=== PATIENT | female | born 1985 | race Caucasian/White ===

== ENCOUNTER 2018-04-11 13:03 | Emergency (ER) | payer MEDICAID, SELFPAY ==
[2018-04-11 13:10] VITALS: BP 123/92; PULSE 105; RESP 17; TEMP 36; O2SAT 95
[2018-04-11 16:35] LABS: Abs Immature Grans 0.03 k/cumm (0.0-0.09); Absolute Basophil Count 0.03 k/cumm (0.0-0.2); Absolute Eosinophil Count 0.01 k/cumm (0.0-0.7); Absolute Lymphocyte Count 1.64 k/cumm (1.2-3.4); Absolute Monocyte Count 0.45 k/cumm (0.11-0.7); Absolute Neutrophil Count 8.29 k/cumm (1.2-6.7); Basophils % 0.3; Eosinophils % 0.1; HCT 53.7 % (36.0-46.0); HGB 17.2 g/dL (12.0-15.5); Immature Grans % 0.3; Lymphocytes % 15.7; Mean Corpuscular Hemoglobin 30.3 pg (27.0-33.0); Mean Corpuscular Volume 94.5 fL (80-95); Mean Platelet Volume 9.9 fL (8.0-11.0); Monocytes % 4.3; Neutrophils % 79.3; Platelet Count 244 x1000/uL (130-400); RBC 5.68 m/cumm (4.00-5.20); RBC Distribution Width 13.3 % (11.7-14.6); White Blood Cell Count 10.45 k/cumm (4.4-10.8)
[2018-04-11] MEDS: Ondansetron 4 MG/2 ML VIAL IVP (16:37)
[2018-04-11] MEDS: Ketorolac 15 MG/ML VIAL IVP (16:38)
[2018-04-11] MEDS: Normal Saline 1,000 ML 1000 ML IV (16:38)
[2018-04-11 16:49] LABS: ALT 24 U/L (12-78); AST 15 U/L (15-37); Albumin 3.9 g/dL (3.4-5.0); Alkaline Phosphatase 250 U/L (46-116); Anion Gap 10.3 mmol/L (3-11); BUN 7 mg/dL (7-18); Bilirubin, Total 0.4 mg/dL (0.2-1.0); CO2 29.7 mmol/L (21.0-32.0); CREATININE 0.63 mg/dL (0.55-1.02); Calcium 9.9 mg/dL (8.5-10.1); Chloride 99 mmol/L (98-107); Glucose 109 mg/dL (70-100); Lipase 119 U/L (73-393); Sodium 139 mmol/L (136-145)
--- NOTE | 2018-04-11 17:52 | W.ED.GENAD ---
Discharge Plan Disposition Patient Disposition: HOME Condition: Improving Discharge Details Chief Complaint: Nausea/Vomit/Diar Clinical Impression: Nausea & vomiting Primary Care Provider: Alisa Castro ED Provider: Jadiel Cates Home Meds and New Rx's Prescriptions: New ondansetron 4 mg tablet,disintegrating 4 mg PO TID PRN (Reason: nausea and vomiting) Qty: 6 RF: 0 Continue omeprazole 40 MG capsule,delayed release(DR/EC) 40 mg PO DAILY RF: 0 buprenorphine-naloxone [Suboxone] 1 EACH film 2 ea Sublingual DAILY RF: 0 furosemide 40 MG tablet 40 mg PO DAILY@1100 Qty: 30 RF: 0 potassium chloride 10 MEQ capsule, extended release 20 meq PO BID Qty: 30 RF: 0 citalopram 10 MG tablet 10 mg PO HS Qty: 30 RF: 0 cyanocobalamin (vitamin B-12) [Vitamin B-12] 500 MCG tablet 1,000 mcg PO DAILY Qty: 30 RF: 0 nicotine 21 MG/24 HR patch 24 hour 21 mg Transdermal QPM Qty: 15 RF: 0 docusate sodium [Colace] 100 MG capsule 100 mg PO BID Qty: 30 RF: 0 folic acid 1 MG tablet 1 mg PO DAILY@1100 Qty: 30 RF: 0 pyridoxine (vitamin B6) 100 MG tablet 100 mg PO DAILY Qty: 30 RF: 0 ergocalciferol (vitamin D2) [Vitamin D2] 50,000 UNITS capsule 50,000 units PO Q7D Qty: 30 RF: 0 spironolactone 50 MG tablet 100 mg PO DAILY@1100 Qty: 30 RF: 0 multivit, iron, min no.8, FA [Therapeutic-M] 1 TAB tablet 1 tab PO DAILY Qty: 30 RF: 0 vitamin E (dl, acetate) 400 UNITS capsule 400 units PO DAILY@1100 Qty: 30 RF: 0 lactulose 20 GM/30 ML solution 20 gm PO BID Qty: 1 RF: 1 ondansetron HCl 4 MG tablet 4 mg PO Q6H PRN PRN (Reason: Nausea) Qty: 10 RF: 0 Discharge Instructions Instructions: Acute Nausea and Vomiting (ED) Additional Instructions: Feel free to return to the emergency department for any new or worsening symptoms otherwise follow-up with your primary care provider in 1 week for reassessment and recheck of your labs due to some of the abnormalities noted in your blood count. Otherwise during illness please stay well-hydrated and get plenty of rest. Referrals: Alisa Castro [Primary Care Provider] - 1 week Discharge Data Discharge Date/Time-TO BE ENTERED AT DEPARTURE: 04/11/18 18:25 Medical Decision Making <del>P</del>atient presenting to the emergency department chief complaint of nausea vomiting with some abdominal pain. Patient reports that this began last night and developed the night and she has had persistent vomiting since. Patient states that she has been not able to keep down any food or fluids due to severity of symptoms is coming to the emergency department to be evaluated. Patient does state that her daughter also has had some similar symptoms but not be severe vomiting. She does report some fever and chills as well. Physical exam is unremarkable and cardiac respiratory and abdominal exam showed no acute findings. Patient specifically does not have any CVA tenderness and has a nonsurgical abdomen. Severe vomiting I am concerned for possible dehydration electrolyte abnormalities otherwise I do not feel that any imaging of the abdomen needs to be done at this time I suspect more of a gastroenteritis, viral illness, or foodborne illness. Pending results patient given IV fluids, Zofran. After review of labs which are nondiagnostic patient was reassessed. Patient states improvement of symptoms that she is now feeling better that she like to go home and rest. Abdomen was reexamined and still remains nontender with no focal findings so I do feel the patient is able to be safely discharged. Of notation on labs was patient's increase in hemoglobin and hematocrit which may be due to some mild dehydration but patient was informed of these findings and told that she should follow-up with her primary care provider for reassessment of her labs in 1 week. After discussion of diagnosis and plan of care patient is no further needs, questions, or concerns and states clear understanding to return to the emergency department for any worsening symptoms. Lab Data Lab results reviewed: Yes I reviewed the patient's lab results. HPI General Date/Time Provider Initiated Documentation: 04/11/18 13:21. Limitations to Documentation: no limitations. Information obtained by: patient. History of Present Illness described as severe, with intensity rated at 8. Quality is described as aching, and is localized to the abdomen. Patient reports no radiation. Patient started experiencing this hour(s) (12) and it has been constant. No relieving factors improve symptom(s), No exacerbating factors reported . Patient did receive the following treatments prior to arrival, none Related Data Home Medications Medication Instructions Recorded Confirmed omeprazole 40 mg PO DAILY 04/02/13 02/26/16 buprenorphine-naloxone [Suboxone] 2 ea SUBLINGUAL DAILY 02/27/16 03/09/16 citalopram 10 mg PO HS #30 tab 03/23/16 cyanocobalamin (vitamin B-12) 1,000 mcg PO DAILY #30 tab 03/23/16 [Vitamin B-12] docusate sodium [Colace] 100 mg PO BID #30 cap 03/23/16 ergocalciferol (vitamin D2) 50,000 units PO Q7D #30 cap 03/23/16 [Vitamin D2] folic acid 1 mg PO DAILY@1100 #30 tab 03/23/16 furosemide 40 mg PO DAILY@1100 #30 tab 03/23/16 lactulose 20 gm PO BID #1 btl 03/23/16 multivit, iron, min no.8, FA 1 tab PO DAILY #30 tab 03/23/16 [Therapeutic-M] nicotine 21 mg TRANSDERMAL QPM #15 patch 03/23/16 ondansetron HCl 4 mg PO Q6H PRN PRN #10 tablet 03/23/16 potassium chloride 20 meq PO BID #30 capcr 03/23/16 pyridoxine (vitamin B6) 100 mg PO DAILY #30 tab 03/23/16 spironolactone 100 mg PO DAILY@1100 #30 tab 03/23/16 vitamin E (dl, acetate) 400 units PO DAILY@1100 #30 cap 03/23/16 ondansetron 4 mg PO TID PRN #6 tab 04/11/18 Previous Rx's Medication Instructions Recorded citalopram 10 mg PO HS #30 tab 03/23/16 cyanocobalamin (vitamin B-12) 1,000 mcg PO DAILY #30 tab 03/23/16 [Vitamin B-12] docusate sodium [Colace] 100 mg PO BID #30 cap 03/23/16 ergocalciferol (vitamin D2) 50,000 units PO Q7D #30 cap 03/23/16 [Vitamin D2] folic acid 1 mg PO DAILY@1100 #30 tab 03/23/16 furosemide 40 mg PO DAILY@1100 #30 tab 03/23/16 lactulose 20 gm PO BID #1 btl 03/23/16 multivit, iron, min no.8, FA 1 tab PO DAILY #30 tab 03/23/16 [Therapeutic-M] nicotine 21 mg TRANSDERMAL QPM #15 patch 03/23/16 ondansetron HCl 4 mg PO Q6H PRN PRN #10 tablet 03/23/16 potassium chloride 20 meq PO BID #30 capcr 03/23/16 pyridoxine (vitamin B6) 100 mg PO DAILY #30 tab 03/23/16 spironolactone 100 mg PO DAILY@1100 #30 tab 03/23/16 vitamin E (dl, acetate) 400 units PO DAILY@1100 #30 cap 03/23/16 ondansetron 4 mg PO TID PRN #6 tab 04/11/18 Allergies Allergy/AdvReac Type Severity Reaction Status Date / Time No Known Allergies Allergy Unverified 02/26/16 22:49 General Stated Complaint: Nausea/Vomit/Diar CAROLYN: 3 Review of Systems Constitutional Denies body ache(s), Reports chills, Reports difficulty sleeping, Denies fever(s) and Reports malaise Cardiovascular Denies chest pain and Denies dyspnea Respiratory Denies dyspnea Gastrointestinal Reports abdominal pain, Denies diarrhea, Reports nausea and Reports vomiting Integumentary/Breasts Denies rash Neurologic Denies confusion and Denies sensory deficit Psychiatric Denies confusion [facility] Social History Smoking/Tobacco Use Status: Current every day Exam Const General: cooperative, no acute distress and ill appearing Orientation: alert, awake and oriented x3 HENMT Mouth: moist mucous membranes Resp Effort & Inspection: normal respiratory effort, able to speak in complete sentences and no respiratory distress Auscultation: clear to auscultation bilaterally Cardio Rate: regular rate Rhythm: regular rhythm Heart Sounds: S1 normal and S2 normal GI Inspection: normal to inspection Palpation: soft, no hepatosplenomegaly, not firm, no guarding and nontender Auscultation: hyperactive bowel sounds Skin General skin exam: no rashes or lesions noted Neuro General: alert, awake, oriented x3, moves all extremities and no focal motor deficits Sensory Exam: no sensory deficits noted Course Vital Signs Temperature 36.0 C L 04/11/18 13:10 Pulse 105 H 04/11/18 13:10 Respiratory Rate 17 04/11/18 13:10 Blood Pressure 123/92 H 04/11/18 13:10 Pulse Oximetry 95 04/11/18 13:10 Temperature 36.0 C L 04/11/18 13:10 Temperature Source Temporal Artery Scan 04/11/18 13:10 Pulse 105 H 04/11/18 13:10 Respiratory Rate 17 04/11/18 13:10 Respiratory Effort 04/11/18 13:19 Blood Pressure 123/92 H 04/11/18 13:10 Blood Pressure Position Sitting 04/11/18 13:10 Pulse Oximetry 95 04/11/18 13:10 Oxygen Delivery Method Room Air 04/11/18 13:10 Oxygen Flow Rate 0 04/11/18 13:10 Pain Level 0 04/11/18 13:10 Lab/Test Results Lab/Test Results: Laboratory Tests Range/Units 04/11/18 04/11/18 16:00 16:00 WBC (4.4-10.8) k/cumm 10.45 RBC (4.00-5.20) m/cumm 5.68 H Hgb (12.0-15.5) g/dL 17.2 H Hct (36.0-46.0) % 53.7 H MCV (80-95) fL 94.5 MCH (27.0-33.0) pg 30.3 MCHC (32.0-36.0) g/dL 32.0 RDW (11.7-14.6) % 13.3 Plt Count (130-400) x1000/uL 244 MPV (8.0-11.0) fL 9.9 Immature Gran % 0.3 Neutrophils % 79.3 Lymphocytes % 15.7 Monocytes % 4.3 Eosinophils % 0.1 Basophils % 0.3 Absolute Neutrophils (1.2-6.7) k/cumm 8.29 H Absolute Lymphocytes (1.2-3.4) k/cumm 1.64 Absolute Monocytes (0.11-0.7) k/cumm 0.45 Absolute Eosinophils (0.0-0.7) k/cumm 0.01 Absolute Basophils (0.0-0.2) k/cumm 0.03 Sodium (136-145) mmol/L 139 Potassium (3.5-5.1) mmol/L 4.0 Chloride (98-107) mmol/L 99 Carbon Dioxide (21.0-32.0) mmol/L 29.7 Anion Gap (3-11) mmol/L 10.3 BUN (7-18) mg/dL 7 Creatinine (0.55-1.02) mg/dL 0.63 Estimated GFR/1.73 m2 (mL/min/1.73m2) >= 60.00 Glucose (70-100) mg/dL 109 H Calcium (8.5-10.1) mg/dL 9.9 Total Bilirubin (0.2-1.0) mg/dL 0.4 AST (15-37) U/L 15 ALT (12-78) U/L 24 Alkaline Phosphatase (46-116) U/L 250 H Total Protein (6.4-8.2) g/dL 9.0 H Albumin (3.4-5.0) g/dL 3.9 Lipase (73-393) U/L 119
== END 2018-04-11 18:25 | disposition home or self-care (01) ==
PROVIDERS: Emergency Provider Nurse Practitioner Family; PCP Nurse Practitioner Family
DX: R11.2 Nausea with vomiting, unspecified (principal); E86.0 Dehydration
CPT/HCPCS: 80053; 81025; 83690; 96361; 96374; 96375; 99285; 85025; 99284; J1885; J2405

== ENCOUNTER 2018-08-18 18:51 | Emergency (ER) | payer MEDICAID, SELFPAY ==
[2018-08-18 19:18] VITALS: BP 136/90; PULSE 81; RESP 20; TEMP 37.1; O2SAT 96
--- NOTE | 2018-08-18 19:45 | W.ED.GENAD ---
Discharge Plan Disposition Patient Disposition: HOME Discharge Details Chief Complaint: Abd Prob Clinical Impression: Hernia, umbilical Primary Care Provider: Alisa Castro ED Provider: Javi Ricketts Home Meds and New Rx's Prescriptions: Continued omeprazole 40 MG capsule,delayed release(DR/EC) 40 mg PO DAILY RF: 0 buprenorphine-naloxone [Suboxone] 1 EACH film 2 ea Sublingual DAILY RF: 0 furosemide 40 MG tablet 40 mg PO DAILY@1100 Qty: 30 RF: 0 potassium chloride 10 MEQ capsule, extended release 20 meq PO BID Qty: 30 RF: 0 citalopram 10 MG tablet 10 mg PO HS Qty: 30 RF: 0 cyanocobalamin (vitamin B-12) [Vitamin B-12] 500 MCG tablet 1,000 mcg PO DAILY Qty: 30 RF: 0 nicotine 21 MG/24 HR patch 24 hour 21 mg Transdermal QPM Qty: 15 RF: 0 docusate sodium [Colace] 100 MG capsule 100 mg PO BID Qty: 30 RF: 0 folic acid 1 MG tablet 1 mg PO DAILY@1100 Qty: 30 RF: 0 pyridoxine (vitamin B6) 100 MG tablet 100 mg PO DAILY Qty: 30 RF: 0 ergocalciferol (vitamin D2) [Vitamin D2] 50,000 UNITS capsule 50,000 units PO Q7D Qty: 30 RF: 0 spironolactone 50 MG tablet 100 mg PO DAILY@1100 Qty: 30 RF: 0 multivit, iron, min no.8, FA [Therapeutic-M] 1 TAB tablet 1 tab PO DAILY Qty: 30 RF: 0 vitamin E (dl, acetate) 400 UNITS capsule 400 units PO DAILY@1100 Qty: 30 RF: 0 lactulose 20 GM/30 ML solution 20 gm PO BID Qty: 1 RF: 1 ondansetron HCl 4 MG tablet 4 mg PO Q6H PRN PRN (Reason: Nausea) Qty: 10 RF: 0 ondansetron 4 mg tablet,disintegrating 4 mg PO TID PRN (Reason: nausea and vomiting) Qty: 6 RF: 0 Discharge Instructions Instructions: Umbilical Hernia (ED) Additional Instructions: Please follow up with Dr. Queen. Please take ibuprofen over the counter - dose according to label. Maintain a clear liquid diet tonight and tomorrow morning. You may advance her diet slowly tomorrow afternoon. Return to the ER for any worsening or new concerning symptoms. Referrals: Shanique Queen MD [ [facility] STAFF PHYSICIAN] - Medical Decision Making 19:49 --33-year-old female with history of umbilical hernia here with painful incarcerated umbilical hernia. Attempted direct pressure and not able to reduce. Patient uncomfortable. Will give ativan 1mg IV. Will give toradol IV. Ice applied. I called Dr. Queen, communications tower climber surgery, who will evaluate patient. 20:35 -- Lactate nl. Patient seen by Dr. Queen - hernia reduced. Recommends discharge with clear liquid diet thourgh tomorrow AM and no lifting. Followup outpatient. HPI General Mode of arrival: ambulatory. Date/Time Provider Initiated Documentation: 08/18/18 19:33. Limitations to Documentation: no limitations. Information obtained by: patient. HPI Narrative: 33-year-old female presents with chief complaint of abdominal pain. Patient notes pain started around 530. She felt her umbilical hernia poke out and she is been unable to get back in. Patient notes that intermittently she notices her umbilical hernia poke out and she is able to reduce it. This is been an ongoing issue for years. This is the first time where she has had difficulty reducing. It is severe. Constant. Localized to the umbilicus. Associated nausea. No modifiers. Related Data Home Medications Medication Instructions Recorded Confirmed omeprazole 40 mg PO DAILY 04/02/13 08/18/18 buprenorphine-naloxone [Suboxone] 2 ea SUBLINGUAL DAILY 02/27/16 08/18/18 citalopram 10 mg PO HS #30 tab 03/23/16 cyanocobalamin (vitamin B-12) 1,000 mcg PO DAILY #30 tab 03/23/16 [Vitamin B-12] docusate sodium [Colace] 100 mg PO BID #30 cap 03/23/16 ergocalciferol (vitamin D2) 50,000 units PO Q7D #30 cap 03/23/16 [Vitamin D2] folic acid 1 mg PO DAILY@1100 #30 tab 03/23/16 furosemide 40 mg PO DAILY@1100 #30 tab 03/23/16 08/18/18 lactulose 20 gm PO BID #1 btl 03/23/16 multivit, iron, min no.8, FA 1 tab PO DAILY #30 tab 03/23/16 [Therapeutic-M] nicotine 21 mg TRANSDERMAL QPM #15 patch 03/23/16 ondansetron HCl 4 mg PO Q6H PRN PRN #10 tablet 03/23/16 potassium chloride 20 meq PO BID #30 capcr 03/23/16 pyridoxine (vitamin B6) 100 mg PO DAILY #30 tab 03/23/16 spironolactone 100 mg PO DAILY@1100 #30 tab 03/23/16 vitamin E (dl, acetate) 400 units PO DAILY@1100 #30 cap 03/23/16 ondansetron 4 mg PO TID PRN #6 tab 04/11/18 08/18/18 Previous Rx's Medication Instructions Recorded citalopram 10 mg PO HS #30 tab 03/23/16 cyanocobalamin (vitamin B-12) 1,000 mcg PO DAILY #30 tab 03/23/16 [Vitamin B-12] docusate sodium [Colace] 100 mg PO BID #30 cap 03/23/16 ergocalciferol (vitamin D2) 50,000 units PO Q7D #30 cap 03/23/16 [Vitamin D2] folic acid 1 mg PO DAILY@1100 #30 tab 03/23/16 furosemide 40 mg PO DAILY@1100 #30 tab 03/23/16 lactulose 20 gm PO BID #1 btl 03/23/16 multivit, iron, min no.8, FA 1 tab PO DAILY #30 tab 03/23/16 [Therapeutic-M] nicotine 21 mg TRANSDERMAL QPM #15 patch 03/23/16 ondansetron HCl 4 mg PO Q6H PRN PRN #10 tablet 03/23/16 potassium chloride 20 meq PO BID #30 capcr 03/23/16 pyridoxine (vitamin B6) 100 mg PO DAILY #30 tab 03/23/16 spironolactone 100 mg PO DAILY@1100 #30 tab 03/23/16 vitamin E (dl, acetate) 400 units PO DAILY@1100 #30 cap 03/23/16 ondansetron 4 mg PO TID PRN #6 tab 04/11/18 Allergies Allergy/AdvReac Type Severity Reaction Status Date / Time No Known Allergies Allergy Unverified 08/18/18 19:23 General Stated Complaint: Abd Prob CAROLYN: 2 Review of Systems Review of Systems All systems reviewed & are unremarkable except as noted in HPI and below Constitutional Denies fever(s) Gastrointestinal Reports as per [facility] Medical History Cirrhosis (Chronic) Social History Smoking/Tobacco Use Status: Current every day Exam Const General: cooperative and uncomfortable HENSD Head: normocephalic and atraumatic Mouth: moist mucous membranes Eyes Conjunctivae: normal conjunctivae Sclera: scleral abnormality (icterus) Resp Auscultation: clear to auscultation bilaterally, no rales, no rhonchi and no wheezes Cardio Jugular venous pressure: no JVD Rate: regular rate and not tachycardic Rhythm: regular rhythm GI Palpation: soft, not firm, no guarding, hernia umbilical, no masses, not rigid and tender (Umbilical) Skin General skin exam: no rashes or lesions noted Neuro General: alert, awake, oriented x3 and tone normal Extrem General: no edema Psych Appearance: grossly normal Mental Status: mental status grossly normal Speech and Movement: speech and movement normal Course Vital Signs Temperature 37.1 C 08/18/18 19:18 Pulse 81 08/18/18 19:18 Respiratory Rate 20 08/18/18 19:18 Blood Pressure 136/90 08/18/18 19:18 Pulse Oximetry 96 08/18/18 19:18 Temperature 37.1 C 08/18/18 19:18 Temperature Source Skin 08/18/18 19:18 Pulse 81 08/18/18 19:18 Respiratory Rate 20 08/18/18 19:18 Blood Pressure 136/90 08/18/18 19:18 Blood Pressure Position Sitting 08/18/18 19:18 Pulse Oximetry 96 08/18/18 19:18 Oxygen Delivery Method Room Air 08/18/18 19:18 Oxygen Flow Rate 0 08/18/18 19:18 Pain Level 8 08/18/18 19:18
--- NOTE | 2018-08-18 19:48 | ED.GENADUL_ITS ---
Discharge Plan Disposition Patient Disposition: HOME Discharge Details Chief Complaint: Abd Prob Clinical Impression: Hernia, umbilical Primary Care Provider: Alisa Castro ED Provider: Javi Ricketts Home Meds and New Rx's Prescriptions: Continued omeprazole 40 MG capsule,delayed release(DR/EC) 40 mg PO DAILY RF: 0 buprenorphine-naloxone [Suboxone] 1 EACH film 2 ea Sublingual DAILY RF: 0 furosemide 40 MG tablet 40 mg PO DAILY@1100 Qty: 30 RF: 0 potassium chloride 10 MEQ capsule, extended release 20 meq PO BID Qty: 30 RF: 0 citalopram 10 MG tablet 10 mg PO HS Qty: 30 RF: 0 cyanocobalamin (vitamin B-12) [Vitamin B-12] 500 MCG tablet 1,000 mcg PO DAILY Qty: 30 RF: 0 nicotine 21 MG/24 HR patch 24 hour 21 mg Transdermal QPM Qty: 15 RF: 0 docusate sodium [Colace] 100 MG capsule 100 mg PO BID Qty: 30 RF: 0 folic acid 1 MG tablet 1 mg PO DAILY@1100 Qty: 30 RF: 0 pyridoxine (vitamin B6) 100 MG tablet 100 mg PO DAILY Qty: 30 RF: 0 ergocalciferol (vitamin D2) [Vitamin D2] 50,000 UNITS capsule 50,000 units PO Q7D Qty: 30 RF: 0 spironolactone 50 MG tablet 100 mg PO DAILY@1100 Qty: 30 RF: 0 multivit, iron, min no.8, FA [Therapeutic-M] 1 TAB tablet 1 tab PO DAILY Qty: 30 RF: 0 vitamin E (dl, acetate) 400 UNITS capsule 400 units PO DAILY@1100 Qty: 30 RF: 0 lactulose 20 GM/30 ML solution 20 gm PO BID Qty: 1 RF: 1 ondansetron HCl 4 MG tablet 4 mg PO Q6H PRN PRN (Reason: Nausea) Qty: 10 RF: 0 ondansetron 4 mg tablet,disintegrating 4 mg PO TID PRN (Reason: nausea and vomiting) Qty: 6 RF: 0 Discharge Instructions Instructions: Umbilical Hernia (ED) Additional Instructions: Please follow up with Dr. Queen. Please take ibuprofen over the counter - dose according to label. Maintain a clear liquid diet tonight and tomorrow morning. You may advance her diet slowly tomorrow afternoon. Return to the ER for any worsening or new concerning symptoms. Referrals: Shanique Queen MD [ [facility] STAFF PHYSICIAN] - Medical Decision Making 19:49 --33-year-old female with history of umbilical hernia here with painful incarcerated umbilical hernia. Attempted direct pressure and not able to reduce. Patient uncomfortable. Will give ativan 1mg IV. Will give toradol IV. Ice applied. I called Dr. Queen, environmental management specialist surgery, who will evaluate patient. 20:35 -- Lactate nl. Patient seen by Dr. Queen - hernia reduced. Recommends discharge with clear liquid diet thourgh tomorrow AM and no lifting. Followup outpatient. HPI General Mode of arrival: ambulatory . Date/Time Provider Initiated Documentation: 08/18/18 19:33 . Limitations to Documentation: no limitations . Information obtained by: patient . HPI Narrative: 33-year-old female presents with chief complaint of abdominal pain. Patient notes pain started around 530. She felt her umbilical hernia poke out and she is been unable to get back in. Patient notes that intermittently she notices her umbilical hernia poke out and she is able to reduce it. This is been an ongoing issue for years. This is the first time where she has had difficulty reducing. It is severe. Constant. Localized to the umbilicus. Associated nausea. No modifiers. Related Data Home Medications Medication Instructions Recorded Confirmed omeprazole 40 mg PO DAILY 04/02/13 08/18/18 buprenorphine-naloxone [Suboxone] 2 ea SUBLINGUAL DAILY 02/27/16 08/18/18 citalopram 10 mg PO HS #30 tab 03/23/16 cyanocobalamin (vitamin B-12) 1,000 mcg PO DAILY #30 tab 03/23/16 [Vitamin B-12] docusate sodium [Colace] 100 mg PO BID #30 cap 03/23/16 ergocalciferol (vitamin D2) 50,000 units PO Q7D #30 cap 03/23/16 [Vitamin D2] folic acid 1 mg PO DAILY@1100 #30 tab 03/23/16 furosemide 40 mg PO DAILY@1100 #30 tab 03/23/16 08/18/18 lactulose 20 gm PO BID #1 btl 03/23/16 multivit, iron, min no.8, FA 1 tab PO DAILY #30 tab 03/23/16 [Therapeutic-M] nicotine 21 mg TRANSDERMAL QPM #15 patch 03/23/16 ondansetron HCl 4 mg PO Q6H PRN PRN #10 tablet 03/23/16 potassium chloride 20 meq PO BID #30 capcr 03/23/16 pyridoxine (vitamin B6) 100 mg PO DAILY #30 tab 03/23/16 spironolactone 100 mg PO DAILY@1100 #30 tab 03/23/16 vitamin E (dl, acetate) 400 units PO DAILY@1100 #30 cap 03/23/16 ondansetron 4 mg PO TID PRN #6 tab 04/11/18 08/18/18 Previous Rx's Medication Instructions Recorded citalopram 10 mg PO HS #30 tab 03/23/16 cyanocobalamin (vitamin B-12) 1,000 mcg PO DAILY #30 tab 03/23/16 [Vitamin B-12] docusate sodium [Colace] 100 mg PO BID #30 cap 03/23/16 ergocalciferol (vitamin D2) 50,000 units PO Q7D #30 cap 03/23/16 [Vitamin D2] folic acid 1 mg PO DAILY@1100 #30 tab 03/23/16 furosemide 40 mg PO DAILY@1100 #30 tab 03/23/16 lactulose 20 gm PO BID #1 btl 03/23/16 multivit, iron, min no.8, FA 1 tab PO DAILY #30 tab 03/23/16 [Therapeutic-M] nicotine 21 mg TRANSDERMAL QPM #15 patch 03/23/16 ondansetron HCl 4 mg PO Q6H PRN PRN #10 tablet 03/23/16 potassium chloride 20 meq PO BID #30 capcr 03/23/16 pyridoxine (vitamin B6) 100 mg PO DAILY #30 tab 03/23/16 spironolactone 100 mg PO DAILY@1100 #30 tab 03/23/16 vitamin E (dl, acetate) 400 units PO DAILY@1100 #30 cap 03/23/16 ondansetron 4 mg PO TID PRN #6 tab 04/11/18 Allergies Allergy/AdvReac Type Severity Reaction Status Date / Time No Known Allergies Allergy Unverified 08/18/18 19:23 General Stated Complaint: Abd Prob CAROLYN: 2 Review of Systems Review of Systems All systems reviewed & are unremarkable except as noted in HPI and below Constitutional Denies fever(s) Gastrointestinal Reports as per [facility] Medical History Cirrhosis (Chronic) Social History Smoking/Tobacco Use Status: Current every day Exam Const General: cooperative and uncomfortable HENTN Head: normocephalic and atraumatic Mouth: moist mucous membranes Eyes Conjunctivae: normal conjunctivae Sclera: scleral abnormality (icterus) Resp Auscultation: clear to auscultation bilaterally, no rales, no rhonchi and no wheezes Cardio Jugular venous pressure: no JVD Rate: regular rate and not tachycardic Rhythm: regular rhythm GI Palpation: soft, not firm, no guarding, hernia umbilical, no masses, not rigid and tender (Umbilical) Skin General skin exam: no rashes or lesions noted Neuro General: alert, awake, oriented x3 and tone normal Extrem General: no edema Psych Appearance: grossly normal Mental Status: mental status grossly normal Speech and Movement: speech and movement normal Course Vital Signs Temperature 37.1 C 08/18/18 19:18 Pulse 81 08/18/18 19:18 Respiratory Rate 20 08/18/18 19:18 Blood Pressure 136/90 08/18/18 19:18 Pulse Oximetry 96 08/18/18 19:18 Temperature 37.1 C 08/18/18 19:18 Temperature Source Skin 08/18/18 19:18 Pulse 81 08/18/18 19:18 Respiratory Rate 20 08/18/18 19:18 Blood Pressure 136/90 08/18/18 19:18 Blood Pressure Position Sitting 08/18/18 19:18 Pulse Oximetry 96 08/18/18 19:18 Oxygen Delivery Method Room Air 08/18/18 19:18 Oxygen Flow Rate 0 08/18/18 19:18 Pain Level 8 08/18/18 19:18
[2018-08-18] MEDS: LORazepam 2 MG/ML VIAL 1 MG IVP (20:10)
[2018-08-18] MEDS: Ketorolac 15 MG/ML VIAL IVP ×2 (20:10→20:46)
[2018-08-18 20:26] LABS: Lactate-non-spesis 1.3 mmol/l (0.6-1.4)
[2018-08-18 20:30] LABS: Abs Immature Grans 0.02 k/cumm (0.0-0.09); Absolute Basophil Count 0.03 k/cumm (0.0-0.2); Absolute Eosinophil Count 0.03 k/cumm (0.0-0.7); Absolute Lymphocyte Count 2.54 k/cumm (1.2-3.4); Basophils % 0.3; Eosinophils % 0.3; HGB 17.2 g/dL (12.0-15.5); Immature Grans % 0.2; Lymphocytes % 23.5; Mean Corp. HGB Concentration 33.7 g/dL (32.0-36.0); Mean Corpuscular Hemoglobin 31.9 pg (27.0-33.0); Mean Corpuscular Volume 94.4 fL (80-95); Mean Platelet Volume 9.5 fL (8.0-11.0); Monocytes % 3.7; Platelet Count 225 x1000/uL (130-400); RBC Distribution Width 13.5 % (11.7-14.6); White Blood Cell Count 10.82 k/cumm (4.4-10.8)
[2018-08-18 20:31] LABS: Absolute Neutrophil Count 7.79 k/cumm (1.2-6.7)
--- NOTE | 2018-08-18 20:38 | W.SURGCON ---
Date of service: 08/18/18 Time of Service: 20:38 Assessment and Plan (1) Umbilical hernia: Current visit: Yes Status: Acute A\\ Incarcerated umbilical hernia P\\ Hernia reduced at bedside with pressure and some ativan D/C home and follow up with me as soon as possible. No lifting >20 lb until your hernia is fixed Miralax for constipation Clear liquids tonight and until the morning and advance as tolerated. Return to ED if you develop worsening N/V or worsening abdominal pain Qualifiers: Obstruction and gangrene presence: with obstruction but without gangrene Qualified Code(s): K42.0 - Umbilical hernia with obstruction, without gangrene History of Present Illness Chief Complaint: incarcerated umbilical hernia Narrative: Mrs. Rowland is a pleasant 33 year old female who was at her daughters basketball game when her hernia popped out. She went to the bathroom and tried to reduce it. She has had the hernia since after the of her 8 year old child. She has been able to reduce the hernia herself before. Her history is significant for IV Drug abuse a long time ago. She is on Suboxone. She tells me that she has cirrhosis. She just underwent ankle surgery last summer and did OK with surgery. [place] [facility] [place] they diagnosed her with Cirrhosis. She did have some nausea after the hernia came out. No vomiting. Patient has received Toradol for pain and some Zofran. Consults Consult date: 08/18/18 Requesting physician: Javi Ricketts Review of Systems Constitutional Denies fever(s) Cardiovascular Denies chest pain, Denies chest pain at rest, Denies rapid heart rate, Denies irregular heart rhythm, Denies palpitations, Denies dyspnea and Denies dyspnea on exertion Respiratory Denies cough, Denies dyspnea and Denies dyspnea on exertion Gastrointestinal Reports as per HPI Genitourinary Reports system reviewed and no additional complaints, except as docu Endocrine Denies palpitations Hematologic/Lymphatic Denies easy bleeding and Denies easy bruising [facility] Medical History Umbilical hernia (Acute) Ascites (Acute) Sensory neuropathy (Acute) Opioid dependence (Acute) Seronegative rheumatoid arthritis (Acute) Hypoalbuminemia (Acute) Hepatic insufficiency (Acute) Cirrhosis (Chronic) Surgical History History of ankle surgery (Acute ~2018) Social History marital status: number of children: 3 Smoking/Tobacco Use Status: Current every day alcohol intake: former substance use type: does not use Exam Const General: cooperative and acute distress mild Eyes Pupils: PERRL Resp Effort & Inspection: normal respiratory effort Auscultation: clear to auscultation bilaterally Cardio Rate: regular rate Rhythm: regular rhythm Heart Sounds: no gallops, no murmurs and no rubs GI Inspection: visible herniation Palpation: soft and hernia umbilical (incarcerated- able to reduce with pressure) Auscultation: normal bowel sounds Results Last Vital Signs Temp 98.8 F 08/18/18 19:18 Pulse 81 08/18/18 19:18 Resp 20 08/18/18 19:18 BP 136/90 08/18/18 19:18 Pulse Ox 96 08/18/18 19:18 Labs : 08/18/18 20:00 08/18/18 20:00 Laboratory Results - last 24 hr 08/18/18 08/18/18 19:43 20:00 WBC 10.82 H RBC 5.40 H Hgb 17.2 H Hct 51.0 H MCV 94.4 MCH 31.9 MCHC 33.7 RDW 13.5 Plt Count 225 MPV 9.5 Immature Gran % 0.2 Neutrophils % 72.0 Lymphocytes % 23.5 Monocytes % 3.7 Eosinophils % 0.3 Basophils % 0.3 Absolute Neutrophils 7.79 H Absolute Lymphocytes 2.54 Absolute Monocytes 0.40 Absolute Eosinophils 0.03 Absolute Basophils 0.03 Lactate 1.3
[2018-08-18 20:43] LABS: ALT 11 U/L (12-78); AST 12 U/L (15-37); Alkaline Phosphatase 137 U/L (46-116); Anion Gap 10.7 mmol/L (3-11); BUN 6 mg/dL (7-18); Bilirubin, Total 0.3 mg/dL (0.2-1.0); CO2 29.3 mmol/L (21.0-32.0); CREATININE 0.76 mg/dL (0.55-1.02); Chloride 99 mmol/L (98-107); Glucose 87 mg/dL (70-100); Lipase 123 U/L (73-393); Potassium 3.3 mmol/L (3.5-5.1); Sodium 139 mmol/L (136-145); Total Protein 9.3 g/dL (6.4-8.2)
[2018-08-18 20:48] LABS: Calcium 9.2 mg/dL (8.5-10.1)
[2018-08-18 20:49] VITALS: BP 130/80; PULSE 88; RESP 16; TEMP 37.2; O2SAT 95
--- NOTE | 2018-08-18 20:56 | SCONE_ITS ---
Date of service: 08/18/18 Time of Service: 20:38 Assessment and Plan (1) Umbilical hernia: Current visit: Yes Status: Acute A\\ Incarcerated umbilical hernia P\\ Hernia reduced at bedside with pressure and some ativan D/C home and follow up with me as soon as possible. No lifting >20 lb until your hernia is fixed Miralax for constipation Clear liquids tonight and until the morning and advance as tolerated. Return to ED if you develop worsening N/V or worsening abdominal pain Qualifiers: Obstruction and gangrene presence: with obstruction but without gangrene Qualified Code(s): K42.0 - Umbilical hernia with obstruction, without gangrene History of Present Illness Chief Complaint: incarcerated umbilical hernia Narrative: Mrs. Rowland is a pleasant 33 year old female who was at her daughters basketball game when her hernia popped out. She went to the bathroom and tried to reduce it. She has had the hernia since after the of her 8 year old child. She has been able to reduce the hernia herself before. Her history is significant for IV Drug abuse a long time ago. She is on Suboxone. She tells me that she has cirrhosis. She just underwent ankle surgery last summer and did OK with surgery. [place] [facility] [place] and they diagnosed her with Cirrhosis. She did have some nausea after the hernia came out. No vomiting. Patient has received Toradol for pain and some Zofran. Consults Consult date: 08/18/18 Requesting physician: Javi Ricketts Review of Systems Constitutional Denies fever(s) Cardiovascular Denies chest pain, Denies chest pain at rest, Denies rapid heart rate, Denies irregular heart rhythm, Denies palpitations, Denies dyspnea and Denies dyspnea on exertion Respiratory Denies cough, Denies dyspnea and Denies dyspnea on exertion Gastrointestinal Reports as per HPI Genitourinary Reports system reviewed and no additional complaints, except as docu Endocrine Denies palpitations Hematologic/Lymphatic Denies easy bleeding and Denies easy bruising [facility] Medical History Umbilical hernia (Acute) Ascites (Acute) Sensory neuropathy (Acute) Opioid dependence (Acute) Seronegative rheumatoid arthritis (Acute) Hypoalbuminemia (Acute) Hepatic insufficiency (Acute) Cirrhosis (Chronic) Surgical History History of ankle surgery (Acute ~2018) Social History marital status: number of children: 3 Smoking/Tobacco Use Status: Current every day alcohol intake: former substance use type: does not use Exam Const General: cooperative and acute distress mild Eyes Pupils: PERRL Resp Effort & Inspection: normal respiratory effort Auscultation: clear to auscultation bilaterally Cardio Rate: regular rate Rhythm: regular rhythm Heart Sounds: no gallops, no murmurs and no rubs GI Inspection: visible herniation Palpation: soft and hernia umbilical (incarcerated- able to reduce with pressure) Auscultation: normal bowel sounds Results Last Vital Signs Temp 98.8 F 08/18/18 19:18 Pulse 81 08/18/18 19:18 Resp 20 08/18/18 19:18 BP 136/90 08/18/18 19:18 Pulse Ox 96 08/18/18 19:18 Labs : 08/18/18 20:00 08/18/18 20:00 Laboratory Results - last 24 hr 08/18/18 08/18/18 19:43 20:00 WBC 10.82 H RBC 5.40 H Hgb 17.2 H Hct 51.0 H MCV 94.4 MCH 31.9 MCHC 33.7 RDW 13.5 Plt Count 225 MPV 9.5 Immature Gran % 0.2 Neutrophils % 72.0 Lymphocytes % 23.5 Monocytes % 3.7 Eosinophils % 0.3 Basophils % 0.3 Absolute Neutrophils 7.79 H Absolute Lymphocytes 2.54 Absolute Monocytes 0.40 Absolute Eosinophils 0.03 Absolute Basophils 0.03 Lactate 1.3
--- NOTE | 2018-08-19 09:07 | PDOC.ERCMPRO ---
Care Management Progress Note 08/19-Dr. Calvin Ricketts requested assistance with a surgical consult (Bernice) for umbilical hernia this week. Referral faxed to [facility] this am.
--- NOTE | 2018-08-19 09:10 | CMPROGNOTE_ITS ---
Care Management Progress Note 08/19-Dr. Calvin Ricketts requested assistance with a surgical consult (Bernice) for umbilical hernia this week. Referral faxed to [facility] this am.
== END 2018-08-18 20:51 | disposition home or self-care (01) ==
PROVIDERS: Emergency Provider Student in an Organized Health Care Education/Training Program; PCP Nurse Practitioner Family
DX: K42.9 Umbilical hernia without obstruction or gangrene (principal)
CPT/HCPCS: 80053; 83690; 86850; 86900; 86901; 96374; 96375; 96376; 99253; 99284; 83605; 85025; J1885; J2060

== ENCOUNTER 2019-04-28 10:59 | Outpatient (REF) | payer MEDICAID, SELFPAY ==
[2019-04-28 18:41] LABS: Abs Immature Grans 0.02 k/cumm (0.0-0.09); Absolute Basophil Count 0.02 k/cumm (0.0-0.2); Absolute Eosinophil Count 0.03 k/cumm (0.0-0.7); Absolute Lymphocyte Count 2.08 k/cumm (1.2-3.4); Absolute Neutrophil Count 7.19 k/cumm (1.2-6.7); Basophils % 0.2; Eosinophils % 0.3; HCT 46.2 % (36.0-46.0); HGB 15.7 g/dL (12.0-15.5); Immature Grans % 0.2; Lymphocytes % 21.4; Mean Corpuscular Hemoglobin 33.4 pg (27.0-33.0); Mean Corpuscular Volume 98.3 fL (80-95); Mean Platelet Volume 9.4 fL (8.0-11.0); Monocytes % 4.1; Neutrophils % 73.8; Platelet Count 283 x1000/uL (130-400); RBC Distribution Width 13.2 % (11.7-14.6); White Blood Cell Count 9.74 k/cumm (4.4-10.8)
[2019-04-28 18:52] LABS: Bilirubin Moderate (Negative); Blood Moderate (Negative); Clarity Turbid (Clear); Glucose Negative (Negative); Ketones 15 mg/dL (Negative); Leukocyte Esterase Negative (Negative); Nitrite Negative (Negative); pH 5.5 (5-8)
[2019-04-28 19:19] LABS: ALT 13 U/L (14-59); AST 18 U/L (15-37); Albumin 4.4 g/dL (3.4-5.0); Alkaline Phosphatase 118 U/L (46-116); Anion Gap 12.4 mmol/L (3-11); BUN 9 mg/dL (7-18); Bilirubin, Total 0.5 mg/dL (0.2-1.0); CO2 26.6 mmol/L (21.0-32.0); CREATININE 0.66 mg/dL (0.55-1.02); Calcium 9.5 mg/dL (8.5-10.1); Chloride 101 mmol/L (98-107); Glucose 112 mg/dL (70-100); Potassium 4.2 mmol/L (3.5-5.1); Sodium 140 mmol/L (136-145); Total Protein 8.2 g/dL (6.4-8.2)
[2019-04-28 19:36] LABS: C & S Indicated? No; Crystals Many Amorphous HPF (Negative)
== END 2019-04-28 11:19 ==
LOC: NCHCN 10:59
PROVIDERS: PCP Nurse Practitioner Family; Visit Provider Nurse Practitioner Family
DX: R11.10 Vomiting, unspecified (principal); R10.30 Lower abdominal pain, unspecified
CPT/HCPCS: 80053; 81003; 81015; 85025

== ENCOUNTER 2019-05-04 01:12 | Outpatient (CLI) | payer MEDICAID, SELFPAY ==
--- NOTE | 2019-05-04 09:00 | DI.US_ITS ---
EXAM: US HERNIA CLINICAL HISTORY: GROIN PAIN R10.30 TECHNIQUE: Ultrasound performed using standard protocol. COMPARISON: ABDOMEN LIMITED/FOLLOW UP US from 02/27/2016 FINDINGS: A sonographic examination of the left groin was carried out. There is no evidence of a left inguinal hernia.
== END 2019-05-04 01:32 ==
PROVIDERS: PCP Nurse Practitioner Family; Visit Provider Nurse Practitioner Family
DX: R10.32 Left lower quadrant pain (principal)
CPT/HCPCS: 76857

== ENCOUNTER 2019-06-22 16:07 | Outpatient (REF) | payer MEDICAID, SELFPAY ==
--- NOTE | 2019-06-22 14:50 | PAPFT_PTH ---
PATIENT: Ashanti Rowland LOC: [facility] U#:[id number] AGE/SX: 34/F ROOM: RE06/22/[address]: VIRGEN Viveros : 1985 BED: DIS: 06/22/2019 SPEC #: [id number] RECD: 06/22/19 17:15 STATUS: RUSTAM REJacques #: [id number] HUMA: 06/22/19 14:[address]: Lauryn Ramsey DEPT: [facility] Cytology RECD BY: Rosaura Cavazos ENTERED: 06/22/19 17:16 SP TYPE: PAPFT OTHR DR: Royal Cunningham Tissues: 1 - CX/ENDOCX FOR PAP SMEARS Procedures: PAP THIN PREP/[facility] Screening Comments: [id number]
[2019-06-23 14:30] LABS: Chlamydia Result Negative (Negative)
[2019-06-23 15:18] LABS: GC Result Negative (Negative)
== END 2019-06-22 16:27 ==
LOC: LBN 16:07
PROVIDERS: PCP Nurse Practitioner Family; Visit Provider Nurse Practitioner Family
DX: Z12.4 Encounter for screening for malignant neoplasm of cervix; Z11.3 Encounter for screening for infections with a predominantly sexual mode of transmission
CPT/HCPCS: 87491; 87591; 88142

== ENCOUNTER 2019-07-03 02:16 | Outpatient (CLI) | payer MEDICAID, SELFPAY ==
--- NOTE | 2019-07-03 13:05 | DI.US_ITS ---
EXAM: US PELVIS AND TRANSVAGINAL CLINICAL HISTORY: LEFT GROIN AND LLQ PAIN AND PRESSURE, LLQ PAIN, R10.32 TECHNIQUE: Ultrasound performed using standard protocol. COMPARISON: US HERNIA from 05/04/2019 FINDINGS: Pelvic ultrasound was performed transabdominally and transvaginally. Please see the accompanying ren a sheet for measurements of pelvic structures. Limited scanning of the kidneys is unremarkable. The re is a small quantity of free pelvic fluid, which is nonspecific. Uterus has a normal myometrial ap pearance and the endometrial stripe is about 5 millimeters in thickness and fairly homogeneous. A 14 millimeter follicle of the right ovary noted. Left ovary measures 5.5 x 4.2 x 4.0 cm and contains 2 large cysts, measuring respectively about 38 mi llimeters in diameter and 30 millimeters in greatest diameter. These appear to be simple cysts. Unr emarkable vascular flow to the ovaries bilaterally. IMPRESSION: Left ovarian simple cysts as described above. No other significant findings.
== END 2019-07-03 02:36 ==
PROVIDERS: PCP Nurse Practitioner Family; Visit Provider Nurse Practitioner Family
DX: R10.32 Left lower quadrant pain (principal); N83.292 Other ovarian cyst, left side; N83.11 Corpus luteum cyst of right ovary
CPT/HCPCS: 76830; 76856

== ENCOUNTER 2019-08-11 17:07 | Outpatient (REF) | payer MEDICAID, SELFPAY ==
--- NOTE | 2019-08-11 13:50 | CER_PTH ---
PATIENT: Ashanti Rowland LOC: [facility] U#:[id number] AGE/SX: 34/F ROOM: RE08/11/[address]: Ilan Presley MD : 1985 BED: DIS: 08/11/2019 SPEC #: [id number] RECD: 08/11/19 17:59 STATUS: RUSTAM REQ #: [id number] HUMA: 08/11/19 13:[address]: Ilan Presley DEPT: Surgical Specimen RECD BY: Rosaura Cavazos ENTERED: 08/11/19 18:01 SP TYPE: CER OTHR DR: Royal Cunningham Tissues: 1 - CERVICAL BIOPSY 2 - ENDOCERVICAL BX/CURRETTE 3 - LABIA BX Procedures: GROSS AND MICRO LEVEL 4 Comments: [id number]
== END 2019-08-11 17:27 ==
LOC: LBN 17:07
PROVIDERS: PCP Nurse Practitioner Family; Visit Provider Obstetrics & Gynecology
DX: N87.1 Moderate cervical dysplasia (principal); N90.1 Moderate vulvar dysplasia
CPT/HCPCS: 88305

== ENCOUNTER 2019-08-18 01:49 | Outpatient (CLI) | payer MEDICAID, SELFPAY ==
--- NOTE | 2019-08-18 13:04 | DI.US_ITS ---
EXAM: US PELVIS TRANSVAGINAL CLINICAL HISTORY: ovarian cyst, N83.209. TECHNIQUE: Ultrasound of the pelvic, both abdominal and transvaginal was performed using standard pr otocol. COMPARISON: US PELVIS TRANSVAGINAL from 07/03/2019 FINDINGS: KIDNEYS: Kidneys are symmetric in size. 6 mm non-obstructing calculus in the right kidney. No eviden ce of hydronephrosis. No renal mass or cyst identified. UTERUS: Position: Anteverted. Size: 7.1 x 3.4 x 4.7 cm Endometrium: 0.9 cm. Normal for patient's menstrual status. Small amount of fluid within the endomet rial canal. Myometrium: Unremarkable. Cervix: Unremarkable. OVARIES: Right: 2.9 x 1.3 x 1.4 cm Cyst or mass: Small follicular cysts. No suspicious mass. Left: 2.7 x 1.5 x 1.7 cm Cyst or mass: Small follicular cysts. No suspicious mass. DOPPLER: Color: Symmetric and uniform flow to both ovaries. No hyperemia. Duplex: Normal ovarian arterial waveforms visualized. CUL-DE-SAC: Free fluid: Small amount of free fluid in the cul-de-sac. IMPRESSION: 1. Right nephrolithiasis, otherwise normal sonographic appearance of the kidneys. 2. Normal-appearing uterus with endometrial stripe within normal limits. 3. Unremarkable bilateral ovaries.
== END 2019-08-18 02:09 ==
PROVIDERS: PCP Nurse Practitioner Family; Visit Provider Obstetrics & Gynecology
DX: N83.01 Follicular cyst of right ovary (principal); N83.02 Follicular cyst of left ovary; N20.0 Calculus of kidney
CPT/HCPCS: 76830; 76856

== ENCOUNTER 2020-02-15 10:34 | Outpatient (CLI) | payer MEDICAID, SELFPAY | END 2020-02-15 10:54 | PROVIDERS: PCP Nurse Practitioner Family; Visit Provider Obstetrics & Gynecology | DX: Z01.818 Encounter for other preprocedural examination (principal) | CPT/HCPCS: 36415; 86850; 86900; 86901; U0003 ==

== ENCOUNTER 2020-02-18 07:22 | Day surgery (SDC) | payer MEDICAID, SELFPAY ==
[2020-02-18 05:59] VITALS: BP 116/77; PULSE 99; RESP 24; TEMP 36.1; O2SAT 94
[2020-02-18] MEDS: Lactated Ringers 1,000 ML 125 ML IV (08:35)
--- NOTE | 2020-02-18 09:26 | CER_PTH ---
PATIENT: Ashanti Rowland LOC: [facility] U#:[id number] AGE/SX: 34/F ROOM: RE02/18/[address]: Ilan Presley MD : 1985 BED: DIS: 02/18/2020 SPEC #: [id number] RECD: 02/18/20 11:16 STATUS: RUSTAM REJacques #: [id number] HUMA: 02/18/20 09:[address]: Ilan Presley DEPT: Surgical Specimen RECD BY: Rosaura Cavazos ENTERED: 02/18/20 11:19 SP TYPE: CER OTHR DR: Royal Cunningham Tissues: 1 - CERVICAL BIOPSY 2 - CERVICAL BIOPSY 3 - ENDOCERVICAL BX/CURRETTE 4 - VULVA BIOPSY 5 - PERITONEUM/MANAN BIOPSY Procedures: GROSS AND MICRO LEVEL 4 GROSS AND MICRO LEVEL 5 GROSS AND MICRO LEVEL 6 Comments: [id number]
[2020-02-18] MEDS: Lidocaine 1% Pres-Free 5 ML VIAL (09:45)
--- NOTE | 2020-02-18 10:28 | W.PM.DSUDISC ---
Discharge Plan Disposition Patient Disposition: HOME Condition: Good Discharge Details Attending Provider: Ilan Presley Primary Care Provider: Royal Cunningham Home Meds and New Rx's Prescriptions: New oxycodone-acetaminophen [Percocet] 5-325 mg tablet 1 tab PO Q6H PRN (Reason: pain) Qty: 15 RF: 0 Continued polyethylene glycol 3350 [Miralax] 17 gram/dose powder 17 gm PO DAILY RF: 0 Vyvanse 70 mg capsule 70 mg PO DAILY RF: 0 omeprazole 40 MG capsule,delayed release(DR/EC) 40 mg PO DAILY RF: 0 buprenorphine-naloxone [Suboxone] 8-2 mg film 2 film Sublingual DAILY RF: 0 furosemide 40 MG tablet 40 mg PO DAILY@1100 Qty: 30 RF: 0 spironolactone 50 MG tablet 100 mg PO DAILY@1100 Qty: 30 RF: 0 ondansetron 4 mg tablet,disintegrating 4 mg PO TID PRN (Reason: nausea and vomiting) Qty: 6 RF: 0 multivitamin Capsule 1 cap PO DAILY RF: 0 Discharge Instructions Stand Alone Forms: DSU Post op Instructions, Jimi Lin (DSU) Activity:: Activity as Tolerated Diet:: As Tolerated Discharge Orders Discharge Orders: Discharge Order (Routine); Ordered 02/18/20 Ordered By: Ilan Presley DS: Diagnosis Discharge Diagnosis (1) JERRY III (vulvar intraepithelial neoplasia III): Status: Acute (2) JOHNATHAN II (cervical intraepithelial neoplasia II): Status: Acute
[2020-02-18 10:35] VITALS: BP 116/70; PULSE 90; RESP 20; TEMP 36.2; O2SAT 94
--- NOTE | 2020-02-24 10:01 | W.PM.OP ---
Date of service: 02/18/20 Time of Service: 10:00 Operative Note Operative Note DATE OF PROCEDURE: 02/18/20 PRE-OP DIAGNOSIS: 1. JOHNATHAN II 2. JERRY III POST-OP DIAGNOSIS: same PROCEDURE: 1. LEEP 2. WLE of vulvar lesion SURGEON: Ilan Presley ASSISTING SURGEON: Pamela Owens ANESTHESIA: MAC and local ESTIMATED BLOOD LOSS: 100 PATHOLOGY: other (1. Cervical LEEP specimen 2. Vulvar lesion 3. Perineal lesion) COMPLICATIONS: None Patient was transported to: PACU Patient's condition: stable Findings: 1. Central non-staining region at the cervix after application of lugols solution 2. 3-4 cm vulvar lesion on the inner aspect of the left labia 3. 3 mm raised perineal lesion Procedure Description: The patient was taken to the operating room and after adequate sedation was achieved the patient was placed in lithotomy position. The patient was prepped and draped in usual sterile manner. A weighted speculum was placed in the vagina with good visualization of the cervix. A paracervical block with 10 cc of 1% plain lidocaine solution was instilled. Lugol solution was applied to the cervix with the above-noted nonstaining region at the SCJ. With the use of a large LEEP electrode on cutting current with a setting of 50 W the anterior and posterior cervix were taken separately. Orientation of the specimen was marked with a single stitch of 3-0 Vicryl at the 12 o'clock position and 2 sutures of 3-0 Vicryl at the 6 o'clock position. A small LEEP electrode was used to perform the excision of the transformation zone which was submitted as a separate specimen. Hemostasis of the LEEP bed was achieved with use of the ball cautery. Monsel solution was applied and excellent hemostasis was noted. The weighted speculum was removed. Attention was then turned to the vulvar lesion on the inner aspect of the left labia. This was a circular lesion measuring approximately 3 to 4 cm in greatest dimension. The area was infiltrated with 1% lidocaine with epinephrine. A 1 cm margin was marked with a marking pen. An elliptical excision of the area was made with a #10 scalpel. Bleeders were cauterized. Specimen orientation was also marked with 3-0 Vicryl suture at the 12 o'clock position. The orientation of the excision was horizontal and the defect was repaired vertically in order to mobilize surrounding tissue under the least amount of tension. Deep sutures of 0 Vicryl were used to provide a reinforcing layer. The incision was closed with interrupted sutures of 3-0 Vicryl. Excellent hemostasis was noted. The procedure was concluded at this point. Sponge, lap and needle counts were correct at the conclusion of the procedure. The patient tolerated the procedure well and was transferred to PACU in stable condition.
== END 2020-02-18 10:48 | disposition home or self-care (01) ==
PROVIDERS: PCP Nurse Practitioner Family; Visit Provider Obstetrics & Gynecology
PROC: 0UBC7ZZ Excision of Cervix, Via Natural or Artificial Opening (ICD-10-PCS; CPT 57522; principal; 2020-02-18 08:30)
DX: D07.1 Carcinoma in situ of vulva (principal); D06.0 Carcinoma in situ of endocervix; L28.0 Lichen simplex chronicus
CPT/HCPCS: 57522; 11624; 12042; 88305; 88307; 88309; J1100; J1885; J2001; J2405

== ENCOUNTER 2022-04-19 20:07 | Outpatient (REF) | payer MEDICAID, SELFPAY ==
[2022-04-19 19:45] LABS: TSH (W/Ref FT4) 1.79 uIU/mL (0.36-3.74); Vitamin B12 338 pg/mL (193-986)
[2022-04-19 19:46] LABS: Folate > 20.0 ng/mL (8.6-20.0)
[2022-04-24 11:18] LABS: Lyme Ab w Rflx to Lyme Confirm Negative (Negative)
== END 2022-04-19 20:08 | disposition home or self-care (01) ==
LOC: NCHCN 20:07
PROVIDERS: Visit Provider Nurse Practitioner Family
DX: G60.9 Hereditary and idiopathic neuropathy, unspecified (principal)
CPT/HCPCS: 85027; 87798; 82607; 82746; 84443; 86618

== ENCOUNTER 2025-06-22 14:55 | Outpatient (CLI) | payer MEDICAID, SELFPAY ==
[2025-06-22 15:24] LABS: HCT 42.4 % (36.0-46.0); HGB 12.8 g/dL (11.2-15.7); MCH 25.1 pg (27.0-33.0); MCHC 30.2 % (32.0-36.0); MCV 83 fL (80-95); MPV 9.3 fL (8.0-11.0); Platelet Count 246 10^3/uL (130-400); RBC 5.10 10^6/uL (3.93-5.22); RDW 17.2 % (11.7-14.6); RDW-SD 51.9 fL; WBC 6.81 10^3/uL (4.4-10.8)
[2025-06-22 15:38] LABS: INR 1.0 (0.9-1.1); Prothrombin Time 10.2 sec (9.1-11.1)
[2025-06-22 15:41] LABS: Ammonia 23 umol/L (11-32)
[2025-06-22 16:22] LABS: ALT 7 U/L (10-49); AST 14 U/L (<34); Albumin 4.7 g/dL (3.2-5.0); Alkaline Phosphatase 88 U/L (46-116); Anion Gap 5.9 mmol/L (3-11); BUN 10 mg/dL (9-23); Bilirubin, Total 0.4 mg/dL (0.2-1.2); CO2 30.1 mmol/L (20.0-31.0); Calcium 9.7 mg/dL (8.3-10.6); Chloride 104 mmol/L (98-107); Glucose 85 mg/dL (74-106); Potassium 3.8 mmol/L (3.5-5.1); Sodium 140 mmol/L (136-145); Total Protein 8.2 g/dL (5.7-8.2)
[2025-06-23 11:15] LABS: Hepatitis C Ab w Rflx HCV PCR Negative (Negative)
== END 2025-06-22 14:56 | disposition home or self-care (01) ==
PROVIDERS: Visit Provider Physician Assistant
DX: K74.60 Unspecified cirrhosis of liver (principal)
CPT/HCPCS: 36415; 80053; 85027; 86803; 82140; 85610